=== PATIENT | female | born 1975 | race Caucasian/White ===

== ENCOUNTER 2019-01-28 13:56 | Outpatient (CLI) | payer OTHER, SELFPAY ==
--- NOTE | 2019-01-28 13:36 | DI.RAD_ITS ---
EXAM: XR WRIST RT COMPL NAVICULAR INDICATION: eval R wrist pain and deformity. COMPARISON: from 07/28/2017 TECHNIQUE: 2D digital imaging was performed. FINDINGS: There is an old fracture deformity of the distal radius. There are a few small bony fragments seen d orsally at the radial carpal joint. A smoothly marginated bony density is seen adjacent to the ulnar styloid. The navicular appears intact. IMPRESSION: Old healed distal radial fracture.
== END 2019-01-28 14:16 ==
PROVIDERS: PCP Nurse Practitioner; Visit Provider Student in an Organized Health Care Education/Training Program
DX: M25.531 Pain in right wrist (principal); Z87.81 Personal history of (healed) traumatic fracture
CPT/HCPCS: 73110

== ENCOUNTER 2019-10-21 07:41 | Outpatient (CLI) | payer OTHER, SELFPAY ==
[2019-10-22 14:53] LABS: COVID-19 RT-PCR Result NEGATIVE (Negative)
== END 2019-10-21 08:01 ==
PROVIDERS: PCP Nurse Practitioner; Visit Provider Nurse Practitioner
DX: Z11.59 Encounter for screening for other viral diseases (principal); Z01.818 Encounter for other preprocedural examination
CPT/HCPCS: U0003

== ENCOUNTER 2020-04-03 03:19 | Outpatient (CLI) | payer OTHER, SELFPAY ==
--- NOTE | 2020-04-03 06:45 | DI.MAMMO_ITS ---
EXAM: MG MAMMO SCREENING CLINICAL HISTORY: screening,Z12.39 TECHNIQUE: Bilateral full field digital CC and MLO mammographic images were obtained with 3D tomosyn thesis and utilizing computer aided detection (CAD). COMPARISON: Available for comparison. FINDINGS: Masses/Architectural Distortion: None seen. Microcalcifications: No suspicious pleomorphic-type are seen. Skin Thickening/Nipple Retraction: None. IMPRESSION: 1. No significant interval change with no specific features of malignancy noted. 2. Unless there is more urgent need, screening mammography is recommended, as per [place] [employer] guidelines. BI-RADS Category 1 - Negative Breast Density - Category C - Heterogeneously dense Breast density category C or D implies that the patient has dense breast tissue. Dense breast tissue is very common and is not abnormal but dense breast tissue can make it harder to find cancer on a ma mmogram. Also, dense breast tissue may increase their breast cancer risk. This information about the result of the mammogram report was provided to the patient to raise their awareness. Use this report when you speak with the patient about their risks for breast cancer, which includes their family hist ory. At that time, you may recommend for more screening tests (Ultrasound or MRI) as they might be us eful based on their risk. A negative radiographic report should not delay biopsy if a dominant or clinically suspicious mass is present. Up to ten percent of cancers are not identified on mammography. A negative report may reinforce clinical impression. Adenosis and dense breasts may obscure an underlying neoplasm. False positive reports average 6 to 10%. Patient will receive a letter notifying them of these results.
== END 2020-04-03 03:39 ==
PROVIDERS: PCP Nurse Practitioner; Visit Provider Nurse Practitioner
DX: Z12.31 Encounter for screening mammogram for malignant neoplasm of breast (principal)
CPT/HCPCS: 77063; 77067

== ENCOUNTER → 2022-11-30 02:18 | Outpatient (CLI) | payer OTHER, SELFPAY ==
--- NOTE | 2022-11-30 08:00 | DI.MAMMO_ITS ---
Exam(s) MAMMO SCREENING EXAM: MAMMO SCREENING CLINICAL HISTORY: screening,z12.39 TECHNIQUE: Mammograms were interpreted according to the usual protocol including computer analysis w [employer] CAD system, tomosynthesis and C-view imaging. COMPARISON: 2016 and 2020 FINDINGS: The breasts are composed of scattered fibroglandular densities, Breast Density category B. No suspicious masses or suspicious microcalcifications are seen. No skin thickening or abnormal axillary lymph nodes are seen. There has been no significant change from prior exams. IMPRESSION: BI-RADS Category 1, Negative mammogram Yearly screening mammography is recommended. Breast Density - Category B, scattered fibroglandular densities. A negative radiographic report should not delay biopsy if a dominant or clinically suspicious mass is present. Up to ten percent of cancers are not identified on mammography. A negative report may reinforce clinical impression. Adenosis and dense breasts may obscure an underlying neoplasm. False positive reports average 6 to 10%. Patient will receive a letter notifying them of these results.
== END ==
PROVIDERS: PCP Nurse Practitioner; Visit Provider Nurse Practitioner
DX: Z12.31 Encounter for screening mammogram for malignant neoplasm of breast (principal)
CPT/HCPCS: 77063; 77067

== ENCOUNTER 2022-12-07 03:20 | Outpatient (CLI) | payer OTHER, SELFPAY ==
[2022-12-07 15:30] LABS: Abs Immature Grans 0.02 10^3/uL (0.0-0.06); Absolute Basophil Count 0.03 10^3/uL (0.0-0.2); Absolute Eosinophil Count 0.05 10^3/uL (0.0-0.7); Absolute Lymphocyte Count 1.92 10^3/uL (1.2-3.4); Absolute Monocyte Count 0.51 10^3/uL (0.1-0.8); Absolute Neutrophil Count 4.45 10^3/uL (1.2-6.7); Basophils % 0.4; Eosinophils % 0.7; HCT 35.6 % (36.0-46.0); HGB 12.2 g/dL (11.2-15.7); Immature Grans % 0.3; Lymphocytes % 27.5; MCH 33.7 pg (27.0-33.0); MCHC 34.3 % (32.0-36.0); MCV 98 fL (80-95); MPV 8.7 fL (8.0-11.0); Monocytes % 7.3; Neutrophils % 63.8; Platelet Count 284 10^3/uL (130-400); RBC 3.62 10^6/uL (3.93-5.22); RDW-SD 46.9 fL; WBC 6.98 10^3/uL (4.4-10.8)
[2022-12-07 17:03] LABS: ALT 35 U/L (14-59); AST 38 U/L (15-37); Albumin 3.7 g/dL (3.4-5.0); Alkaline Phosphatase 68 U/L (46-116); BUN 11 mg/dL (7-18); Bilirubin, Total 0.4 mg/dL (0.2-1.0); CREATININE 0.8 mg/dL (0.55-1.02); Calcium 9.5 mg/dL (8.5-10.1); Calculated LDL 122 mg/dL (<100); Chloride 98 mmol/L (98-107); Cholesterol 236 mg/dL (<200); Estimated GFR 91.97 (mL/min/1.73m2); Ferritin 55 ng/mL (8-252); Glucose 90 mg/dL (74-106); HDL Cholesterol 90 mg/dL (40-60); Sodium 133 mmol/L (136-145); TSH (W/Ref FT4) 1.76 uIU/mL (0.36-3.74); Total Protein 7.9 g/dL (6.4-8.2); Triglyceride 121 mg/dL (<150); Vitamin D 25 Total 30.4 ng/mL (30-100)
[2022-12-07 17:25] LABS: Anion Gap 11.5 mmol/L (3-11); CO2 23.5 mmol/L (21.0-32.0)
== END 2022-12-07 03:21 | disposition home or self-care (01) ==
LOC: LBO 03:21
PROVIDERS: PCP Nurse Practitioner; Visit Provider Nurse Practitioner
DX: R53.83 Other fatigue (principal); E55.9 Vitamin D deficiency, unspecified; F41.8 Other specified anxiety disorders; R79.89 Other specified abnormal findings of blood chemistry
CPT/HCPCS: 36415; 80053; 80061; 82306; 82728; 84443; 85025

== ENCOUNTER 2023-11-24 07:48 | Day surgery (SDC) | payer OTHER, SELFPAY ==
--- NOTE | 2023-11-23 19:19 | W.PM.DSUDISC ---
Date of service: 11/24/23 Time of Service: 09:25 Discharge Plan Disposition Patient Disposition: Home Condition: Good Discharge Details Reason For Visit: screening colonoscopy Attending Provider: Juanito Mcintosh Primary Care Provider: Mariza Gracia Home Meds and New Rx's Prescriptions: Continued omeprazole 20 mg capsule,delayed release(DR/EC) 20 mg PO DAILY PRN valacyclovir [Valtrex] 1 gram tablet See Rx Instructions PO Q12H Qty: 4 4RF Rx Instructions: 2,000mg (2 tabs) q12h x1 day for cold sore treatment lorazepam 0.5 mg tablet 0.5 mg PO DAILY PRN (Reason: anxiety) Qty: 15 3RF Discontinued polyethylene glycol 3350 17 gram/dose powder 238 g PO ONCE Qty: 238 0RF Rx Instructions: take per colonoscopy instructions bisacodyl [Dulcolax (bisacodyl)] 5 mg tablet,delayed release (DR/EC) 5 mg PO ONCE Qty: 4 0RF Rx Instructions: take per colonoscopy instructions Discharge Instructions Instructions: Colon polyps Additional Instructions: Adriana, we were able to complete your colonoscopy today without any difficulty. Your prep was excellent. I did find and remove 1 tiny polyp. Nothing about it appears worrisome to the naked eye. Regardless, this will be sent off for testing since the type of polyps determines the timing of next colonoscopy. Hopefully you are comfortable, and you will feel great later today. The polyp report takes about a week or 2 to get the results of, and the office will be in touch at that point with recommendations. If you have any questions in the meantime, please do not hesitate to call. 1. If tolerated, consume a soft, low fiber diet for 1-2 days. 2[address] Do not drive, drink alcohol, operate machinery, make critical decisions, or do activities that require coordination or balance for 24 hours. 3. Because air was put into your colon during the procedure, expelling air from your rectum (passing gas or farting) is normal. 4. You may not have a bowel movement for 1-3 days because of the colonoscopy prep. This is normal. 5. Go directly to the emergency room if you notice any of the following: Develop chills (warm to touch), or if you have a thermometer and your temperature is above 101 Difficulty breathing or difficultly swallowing Persistent vomiting Severe abdominal pain, other than gas cramps Severe chest pain Black, tarry stools Any bleeding ? exceeding one tablespoon 6. Call your physician if the site where your intravenous was started becomes red, swollen, painful, and warm to touch. 7. Your physician has reviewed your pre-procedure medications. Please continue to take those medications as previously ordered. You will be given specific information/education regarding any changes to your medications before leaving. Activity:: Activity as Tolerated Diet:: As Tolerated Discharge Orders Discharge Orders: Discharge Order (Routine); Ordered 11/23/23 Ordered By: Juanito Mcintosh DS: Diagnosis Discharge Diagnosis (1) Encounter for screening colonoscopy: Status: Acute Asessment and Plan: Follow-up on polypectomy results
--- NOTE | 2023-11-23 19:21 | COLE_ITS ---
Date of service: 11/24/23 Time of Service: : Colonoscopy Report Date of procedure: 11/24/23 Pre-op diagnosis general: screening colonoscopy Post-op diagnosis procedure note: other (Colon polyp) Procedure: colonoscopy with polypectomy Surgeon: Juanito Mcintosh Anesthesia Type: General:No Airway Estimated blood loss (mL): 5 Pathology: other (0.25 cm flat polyp at 20 cm) Complications: None Disposition: same day Indications: Adriana is a 48 year old woman who needs her first screening colonoscopy Prep: Miralax/Dulcolax Procedure Start Time: 08:58 Procedure End Time: :18 Retraction Time: 12 Findings: 0.25 cm flat polyp at 20 cm Procedure Description: After the induction of anesthesia, and with the patient in left lateral decubitus position, I began by performing an external anorectal exam.? Perineum and skin were normal, as was the anal verge.? There was no evidence of external hemorrhoids.? Next, I performed a digital rectal exam.? I did not appreciate any abnormal findings.? Next, I advanced a colonoscope into the rectal vault.? I performed retroflexion.? This was normal.? Using insufflation, I then advanced the colonoscope beyond the rectal folds and into the sigmoid colon before advancing towards the cecum.? The quality of the prep was outstanding.? The scope was noted to be in the cecum by identification of the ileocecal valve and appendiceal orifice.? I then began withdrawing the colonoscope using repeated irrigation as necessary for full evaluation of the colonic mucosa. Around 20 cm from the anal verge I identified a 0.25 cm polyp. ?It appeared flat in character. ?I was able to remove this with a cold forcep polypectomy. ?I examined the site, and there was minimal bleeding. ?Once this was completed, I continued to withdraw the scope and examine the remainder of the colonic mucosa.?Once the scope was withdrawn to the level of the rectum, great care was taken to examine portions of the rectal folds.? Finally, the scope was withdrawn and the patient was brought to the same-day surgery recovery unit as the anesthetic wore off. ?The findings and instructions were shared with the patient prior to discharge. [place] Bowel Prep [place] Bowel Prep Right Colon: 3 Left Colon: 3 Transverse Colon: 3 Total Score: 9
[2023-11-24 08:00] VITALS: BP 178/101; PULSE 89; RESP 16; TEMP 36.4; O2SAT 99
--- NOTE | 2023-11-24 08:37 | W.ANESPRE ---
General Info Date of Service Date Performed: 11/24/23 Height: 5 ft 7.5 in Weight: 81.828 kg Body Mass Index (BMI): 27.8 Surgical Procedure: Operation Date: 11/24/23 09:05 Proposed Procedure Side Surgeon jaydon Mcintosh MD Meds Allergies and Home Medications Allergies Allergy/AdvReac Type Severity Reaction Status Date / Time amoxicillin Allergy Unknown Rash Verified 11/22/23 13:37 Home Medication ?Medication ?Instructions ?Recorded valacyclovir 1 gram tablet See Rx Instructions PO Q12H #4 tabs 11/07/22 (Valtrex) lorazepam 0.5 mg tablet 0.5 mg PO DAILY PRN anxiety #15 11/08/23 tabs omeprazole 20 mg capsule,delayed 20 mg PO DAILY PRN 11/14/23 release Current Visit Medications: Current Medications Generic Name Dose Route Start Last Admin Trade Name Freq PRN Reason Stop Dose Admin Ringer's Solution 1,000 mls @ 80 mls/hr 11/24/23 06:00 IV 11/24/23 23:59 INFUSION [facility] IV Miscellaneous Supplies 1 each 11/24/23 06:00 Iv Access IV 11/24/23 23:59 DIRECTED SURJIT Ondansetron HCl 4 mg 11/23/23 19:22 Ondansetron 4 Mg/2 Ml Vial IVP 12/23/23 19:21 Q4H PRN PRN Nausea / Vomiting Sodium Chloride 0 ml 11/24/23 06:00 Normal Saline Flush 10 Ml Syr IV 11/24/23 23:59 PRN PRN Sodium Chloride 0 ml 11/24/23 06:00 Normal Saline 10 Ml Vial IJ 11/24/23 23:59 DIRECTED PRN Sterile Water 0 ml 11/24/23 06:00 Water,Injection,Sterile 10 Ml Vial IJ 11/24/23 23:59 DIRECTED PRN PFSH Active Problems Active Problems: Problem Status Onset Code Encounter for screening colonoscopy Acute Z12.11 Gastritis Acute K29.70 Telogen effluvium Acute ~01/2023 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.0 Sensation of fullness in both ears Acute H93.8X3 Patulous eustachian tube, bilateral Acute H69.03 COVID Acute ~07/15/21 U07.1 Anxiety Chronic F41.9 Screening for cholesterol level Acute Z13.220 Tinnitus, bilateral Acute H93.13 Muscle spasm Acute M62.838 Encounter for screening laboratory testing for COVID-19 virus Acute Z11.59 Nasal septal spur Acute J34.89 Retraction of tympanic membrane of left ear Acute H73.892 Dysfunction of both eustachian tubes Acute H69.83 Sensorineural hearing loss of both ears Acute H90.3 Fracture of distal end of right radius with malunion Acute 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, 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 Anxiety Chronic F41.9 Panic attacks Chronic 06/04/15 F41.0 Herpes simplex Chronic 10/26/12 B00.9 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 Medical History Medical History 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 Other seborrheic keratosis (~08/2023) Other benign neoplasm of skin, unspecified (~08/2023) Surgical History Surgical History History of wisdom tooth extraction Tobacco Smoking/Tobacco Use Status: Former Tobacco Use Passive smoking exposure: Yes Alcohol Alcohol Intake: current Alcohol intake frequency: a few times a week Alcohol type: wine Substance Use Substance use type: does not use Vital Signs and Lab Results Vital Signs Most Recent Vital Signs in EMR: Most Recent Vital Signs Temp Pulse Resp BP Pulse Ox 36.4 C L 89 16 178/101 H 99 11/24/23 08:00 11/24/23 08:00 11/24/23 08:00 11/24/23 08:00 11/24/23 08:00 Lab Results Blood Type / Crossmatch: No Data to Display Complete Blood Count: No Data to Display Complete Metabolic Panel: No Data to Display Liver Function Panel: No Data to Display Coagulation Panel: No Data to Display Cardiac Panel: No Data to Display Arterial Blood Gas: No Data to Display Venous Blood Gas: No Data to Display Pancreas Panel: No Data to Display Thyroid Panel: No Data to Display Infectious Disease: No Data to Display Blood Cultures: No Data to Display Toxicology Panel: No Data to Display Panel: No Data to Display Anesthesia Assessment and Plan Anesthesia History Personal History: No History of Anesthesia Complications Family History: No Family History of Anesthesia Complications Exercise Tolerance Exercise Tolerance: Metabolic Equivalents>4 Pertinent Negatives Pertinent Negatives: No Symptoms of GERD, No Major Cardiovascular Symptoms or Complaints and No Major Pulmonary Symptoms or Complaints Cardiac & Pulmonary Exam Cardiac Exam: Normal S1/S2 Heart Sounds Pulmonary Exam: Clear Bilateral Breath Sounds Implantable Cardiac Device Does patient have a Pacemaker or an ICD?: No Airway Exam Known Difficult Airway: No Mallampati Class: 2 Mouth Opening: Normal (> 3cm) Thyromental Distance: Greater than 3 cm Neck Range of Motion: Full ROM Neck Circumference: Normal Teeth Condition: Normal Dentition ASA Classification ASA Score: ASA 2 Emergency Case?: No NPO Status NPO Status: NPO Clears >2 hours, Solids >8 hours Status Status: Negative HCG Anesthesia Plan Resuscitation Status: Full Code Anesthesia Technique: General Anesthesia Airway Planned: Natural Airway Monitors Used: Standard Monitors
[2023-11-24 08:39] VITALS: BMI 27.8
[2023-11-24] MEDS: Lactated Ringers 1,000 ML 80 ML IV (08:43)
--- NOTE | 2023-11-24 09:16 | BOWEL_PTH ---
PATIENT: Adriana Calderon LOC: [facility] U#:[id number] AGE/SX: 48/F ROOM: RE11/24/[address]: Juanito Mcintosh MD : 1975 BED: DIS: 11/24/2023 SPEC #: [id number] RECD: 11/24/23 12:10 STATUS: LAITH RE #: [id number] NELSON: 11/24/23 09:[address]: Juanito Mcintosh DEPT: Surgical Specimen RECD BY: Yady Braden ENTERED: 11/24/23 12:11 SP TYPE: Bowel OTHR DR: Mariza Gracia APRN Tissues: 1 - BIOPSY BOWEL Procedures: GROSS AND MICRO LEVEL 4 Comments: [id number]
[2023-11-24 09:25] VITALS: BP 126/89; PULSE 76; RESP 16; TEMP 37.2; O2SAT 100
--- NOTE | 2023-11-24 09:42 | W.ANESPOSTOP ---
Postoperative Evaluation Date, Time and Location Date Performed: 11/24/23 Time Performed: : Patient Location: Day Surgery Unit Vital Signs Most Recent Imported Vital Signs: Most Recent Vital Signs Temp Pulse Resp BP Pulse Ox 37.2 C 76 16 126/89 100 11/24/23 09:25 11/24/23 09:25 11/24/23 09:25 11/24/23 09:25 11/24/23 09:25 Pain Score Most Recent Pain Score: Most Recent Pain Score Pain Level 0 11/24/23 09:25 Assessment Mental Status: Awake (Alert & Oriented to Patient Baseline) Airway and Respiratory Function: Patent airway with normal (patient baseline) respiratory exam Cardiovascular Function: Hemodynamically Stable Hydration Status: Adequately Hydrated Nausea & Vomiting: No Nausea or Vomiting Pain: Pt. Denies Any Pain Peripheral Nerve Block: Patient did not receive a nerve block
[2023-11-24 09:55] VITALS: BP 145/79; PULSE 69; RESP 18; TEMP 36.7; O2SAT 100
== END 2023-11-24 10:05 | disposition home or self-care (01) ==
LOC: SUR 07:48
PROVIDERS: PCP Nurse Practitioner; Visit Provider Surgery
PROC: 0DJD8ZZ Inspection of Lower Intestinal Tract, Via Natural or Artificial Opening Endoscopic (ICD-10-PCS; CPT 45378; principal; 2023-11-24 09:00)
DX: Z12.11 Encounter for screening for malignant neoplasm of colon (principal); K63.5 Polyp of colon
CPT/HCPCS: 45380; 81025; 88305; J2001; J2704

== ENCOUNTER 2024-04-04 02:52 | Outpatient (CLI) | payer OTHER, SELFPAY ==
--- NOTE | 2024-04-04 12:18 | DI.MAMMO_ITS ---
Exam(s) MAMMO SCREENING EXAM: MAMMO SCREENING CLINICAL HISTORY: screening,Z12.39. TECHNIQUE: Bilateral full field digital CC and MLO mammographic images were obtained with 3D tomosyn thesis and utilizing computer aided detection (CAD). COMPARISON: Prior mammograms were reviewed. FINDINGS: There are no new left breast findings. In the right breast there is a new small group of microcalcifications. Spot compression view Mag vie w recommended. No new spiculated masses in either breast There is no significant architectural distortion nor skin thickening-retraction. IMPRESSION: 1. No radiographic evidence of malignancy in left breast. 2. New small microcalcification group in the right breast. Spot magnification view recommended BI-RADS Category 0 - Incomplete: Need additional imaging evaluation Breast Density - Category B - Scattered areas of fibroglandular density Breast density Category C or D implies that the patient has dense breast tissue. Dense breast tissue can make it harder to find cancer on a mammogram. Dense breast tissue is also associated with an incr eased risk of breast cancer. This information about the result of the mammogram report was provided to the patient to raise their awareness. Use this report when you speak with the patient about their risks for breast cancer, which includes their family history. At that time, you may recommend additional screening tests (Ultrasoun d or MRI) as these tests may add significant information. A negative radiographic report should not delay biopsy if a dominant or clinically suspicious mass is present. Up to ten percent of cancers are not identified on mammography. A negative report may reinforce clinical impression. Adenosis and dense breasts may obscure an underlying neoplasm. False positive reports average 6 to 10%. Patient will receive a letter notifying them of these results.
== END 2024-04-04 03:12 ==
LOC: DI 02:52
PROVIDERS: PCP Nurse Practitioner; Visit Provider Nurse Practitioner
DX: Z12.31 Encounter for screening mammogram for malignant neoplasm of breast (principal); R92.323 Mammographic fibroglandular density, bilateral breasts
CPT/HCPCS: 77063; 77067

== ENCOUNTER 2024-04-10 02:57 | Outpatient (CLI) | payer OTHER, SELFPAY ==
--- NOTE | 2024-04-10 | DI.MAMMO_ITS ---
Exam(s) MG MAMMO SCREEN CALL BACK UNI EXAM: MAMMO SCREEN CALL BACK UNI CLINICAL HISTORY: New small group of microcalcifications, rt breast. TECHNIQUE: Craniocaudal and mediolateral oblique Full Field Digital Mammography views of the right b reast with Computer Aided Diagnosis. COMPARISON: No exams were available for comparison FINDINGS: Mammography/Tomosynthesis: Masses/Architectural Distortion: None seen. Microcalcifictions: No suspicious pleomorphic-type are seen. There is a single curvilinear calcificat ions seen in the upper outer quadrant of the right breast. No pleomorphic calcifications are seen. Skin Thickening/Nipple Retraction: None. IMPRESSION: 1. No definite evidence of malignancy is noted. 2. Unless there is more urgent need, follow-up screening mammography is recommended, as per [place] [employer] guidelines. 3. The findings were discussed with the patient on the date of the examination. BI-RADS Category 2 - Benign Findings Breast Density - Category B - Scattered areas of fibroglandular density Breast density Category C or D implies that the patient has dense breast tissue. Dense breast tissue can make it harder to find cancer on a mammogram. Dense breast tissue is also associated with an incr eased risk of breast cancer. This information about the result of the mammogram report was provided to the patient to raise their awareness. Use this report when you speak with the patient about their risks for breast cancer, which includes their family history. At that time, you may recommend additional screening tests (Ultrasoun d or MRI) as these tests may add significant information. A negative radiographic report should not delay biopsy if a dominant or clinically suspicious mass is present. Up to ten percent of cancers are not identified on mammography. A negative report may reinforce clinical impression. Adenosis and dense breasts may obscure an underlying neoplasm. False positive reports average 6 to 10%. Patient will receive a letter notifying them of these results.
== END 2024-04-10 03:17 ==
LOC: DI 02:57
PROVIDERS: PCP Nurse Practitioner; Visit Provider Nurse Practitioner
DX: Z12.31 Encounter for screening mammogram for malignant neoplasm of breast (principal); R92.323 Mammographic fibroglandular density, bilateral breasts; D24.1 Benign neoplasm of right breast
CPT/HCPCS: 77063; 77067